=== PATIENT | female | born 1975 | race African-American/Black ===

== ENCOUNTER 2016-05-11 18:21 | Emergency (ER) | payer MEDICAID ==
[2015-03-01 02:22] VITALS: BMI 26.2
[~2016-05-11 18:21] MED LIST: BACTRIM DS TABL1 TAB PO; DEMEROL50 MG PO
[2016-05-11 19:23] LABS: APPEARANCE HAZY (CLEAR); BILIRUBIN NEGATIVE (NEGATIVE); COLOR YELLOW (YELLOW); GLUCOSE NEGATIVE (NEGATIVE); KETONE NEGATIVE (NEGATIVE); LEUKOCYTE ESTERASE NEGATIVE (NEGATIVE); NITRITE NEGATIVE (NEGATIVE); PROTEIN NEGATIVE (NEGATIVE); SPECIFIC GRAVITY 1.015 (1.005-1.020); UROBILINOGEN NORMAL (NORMAL)
[2016-05-11 19:24] LABS: BACTERIA FEW /hpf (NONE SEEN); RED CELLS - URINE 0-5 /hpf (0-5); WHITE CELLS - URINE 0-5 /hpf (0-5)
[2016-05-11 19:36] LABS: BASOPHILS 0.2 % (0.0-2.0); EOSINOPHILS 1.6 % (0-7); HEMATOCRIT 40.9 % (36.0-48.0); HEMOGLOBIN 13.1 g/dL (12-16); IMMATURE GRANULOCYTES 0.2 % (0-5); LYMPHOCYTES 28.2 % (15-50); MCV 90.5 fL (80.0-100.0); MEAN PLATELET VOLUME 10.8 fL (7.4-10.4); MONOCYTES 5.6 % (2-11); NEUTROPHILS 64.2 % (40-80); PLATELET COUNT 142 10x3/uL (130-400); RBC 4.52 10x6/uL (4.00-5.40); RDW 13.6 % (11.5-14.5); WBC 8.2 10x3/uL (4.8-10.8)
[2016-05-11 19:44] LABS: HCG SERUM NEGATIVE (NEGATIVE)
== END 2016-05-11 20:43 | disposition home or self-care (01) ==
LOC: D.ER 18:21
PROVIDERS: Emergency Medicine Emergency Medical Services
DX: N76.0 Acute vaginitis (principal); F17.200 Nicotine dependence, unspecified, uncomplicated

== ENCOUNTER → 2017-02-12 08:56 | Outpatient (CLI) | payer MEDICAID ==
[2015-03-01 02:22] VITALS: BMI 26.2
== END | disposition home or self-care (01) ==
LOC: D.US 08:56
DX: R11.0 Nausea (principal)

== ENCOUNTER → 2017-02-14 12:32 | Outpatient (CLI) | payer MEDICAID ==
[2015-03-01 02:22] VITALS: BMI 26.2
== END | disposition home or self-care (01) ==
LOC: D.NM 12:32
DX: R93.5 Abnormal findings on diagnostic imaging of other abdominal regions, including retroperitoneum (principal)

== ENCOUNTER 2017-05-13 14:01 | Emergency (ER) | payer MEDICAID ==
[2015-03-01 02:22] VITALS: BMI 26.2
== END 2017-05-13 17:05 | disposition home or self-care (01) ==
LOC: D.ER 14:01
DX: J11.1 Influenza due to unidentified influenza virus with other respiratory manifestations (principal)

== ENCOUNTER → 2017-09-21 08:07 | Outpatient (CLI) | payer MEDICAID ==
[2015-03-01 02:22] VITALS: BMI 26.2
== END | disposition home or self-care (01) ==
LOC: D.MRI 08:07
DX: Z12.31 Encounter for screening mammogram for malignant neoplasm of breast (principal)

== ENCOUNTER 2018-04-19 09:22 | Emergency (ER) | payer MEDICAID ==
[~2018-04-19] VITALS: Ht 170.2 cm; Wt 65.3 kg
[2018-04-19 09:36] VITALS: Ht 170.2 cm; Wt 65.3 kg
[2018-04-19] MEDS ORDERED: KEFLEX500 MG PO (10:54)
[2018-04-19] MEDS ORDERED: TORADOL10 MG PO (10:54)
[2018-04-19 11:30] VITALS: BP 116/74
== END 2018-04-19 11:30 | disposition home or self-care (01) ==
LOC: D.ER 09:22
DX: N75.0 Cyst of Bartholin's gland (principal); F17.200 Nicotine dependence, unspecified, uncomplicated

== ENCOUNTER 2018-11-27 09:00 | Outpatient (CLI) | payer MEDICAID ==
[2018-04-19 09:36] VITALS: BMI 26.2
[~2018-11-27 09:00] MED LIST changes: +KEFLEX500 MG PO; +TORADOL10 MG PO
== END 2018-11-27 10:00 | disposition home or self-care (01) ==
LOC: D.MAMMO 09:00
PROVIDERS: ATTEND Nurse Practitioner Women's Health
DX: Z12.31 Encounter for screening mammogram for malignant neoplasm of breast (principal)

== ENCOUNTER → 2019-02-19 08:00 | Outpatient (CLI) | payer MEDICAID ==
[2018-04-19 09:36] VITALS: BMI 26.2
== END ==
LOC: D.MAMMO 01-08 15:00
PROVIDERS: ATTEND Nurse Practitioner Women's Health
DX: R92.8 Other abnormal and inconclusive findings on diagnostic imaging of breast (principal)

== ENCOUNTER 2019-09-11 10:04 | Day surgery (SDC) | payer MEDICAID ==
[~2019-09-11] VITALS: Ht 166.4 cm; Wt 62.1 kg
[2019-09-11 10:42] VITALS: BP 119/81; Ht 166.4 cm; Wt 62.1 kg
[2019-09-11 10:53] LABS: HCG URINE NEGATIVE (NEGATIVE)
--- NOTE | 2019-09-11 10:56 | NUR ---
SUICIDE SCREEENING SCREENED POSITIVE IN THE PAST SUICIDE POLICY IMPLEMENTED NOTIFIED BRASS BOBBIN WINDER FOR BEHAVIAL HEALTH CONSULT.
[2019-09-11 11:22] LABS: BASOPHILS 0.1 % (0-2); EOSINOPHILS 0.2 % (0-7); HEMATOCRIT 44.1 % (36.0-48.0); HEMOGLOBIN 14.1 g/dL (12-16); IMMATURE GRANULOCYTES 0.3 % (0-5); MCH 29.3 pg (26.0-34.0); MCV 91.7 fL (80.0-100.0); MEAN PLATELET VOLUME 10.3 fL (7.4-10.4); MONOCYTES 5.8 % (2-11); NEUTROPHILS 85.6 % (40-80); PLATELET COUNT 167 10x3/uL (130-400); RBC 4.81 10x6/uL (4.00-5.40); WBC 11.1 10x3/uL (4.8-10.8)
--- NOTE | 2019-09-11 15:22 | NUR ---
FULL LIQUID TRAY TO ROOM. AWAKE AND ALERT.VSS. PAIN 5/10 TO INCISION SITE. CL IN EASY REACH
--- NOTE | 2019-09-11 16:48 | NUR ---
1545-REMOVED IV WITH CATH INTACT,DISPOSED INTO SHARPS,COVERED WITH GUAZE,SECURED WITH MEDIPORE TAPE.
--- NOTE | 2019-09-11 16:48 | NUR ---
1527-CONTACTED DR. PAINTER VIA PHONE FOR TAKE HOME PRESCRIPTIONS FOR PT. HE WILL SEND SOMEONE OVER FROM HIS OFFICE WITH [facility]
--- NOTE | 2019-09-11 16:49 | NUR ---
1602-DISCHARGE CRITERIA MET. REVIEWED POST OPERATIVE INSTRUCTIONS. VERBALIZED UNDERSTANDING. ESCORTED OUT VIA W/C WITH AWAITING TO DRIVE HOME
--- NOTE | 2019-09-11 23:10 | OP ---
PATIENT NAME: DAHLIA JEAN MEDICAL RECORD: [id number] :77 LOCATION:[facility] ADMISSION DATE: SURGEON: CABRERA PAINTER MD DATE OF OPERATION: 09/11/2019 PREOPERATIVE DIAGNOSIS: Symptomatic Bartholin cyst. POSTOPERATIVE DIAGNOSIS: Symptomatic Bartholin cyst. PROCEDURE: Marsupialization. SURGEON: Cabrera Painter MD LABOR EXPEDITER: Syed. ANESTHESIOLOGIST: Mackenzie. ANESTHETIC: LMA. FINDINGS: Approximately 5 cm Bartholin cyst with purulent material. The skin shows no signs of erythema. There is an area of induration along the lateral margin of the labia majora. SPECIMENS REMOVED: Cultures times 2. SPECIMEN DISPOSITION: Lab. ESTIMATED BLOOD LOSS: Minimal. FLUIDS: 200 cc lactated Ringer's. URINE OUTPUT: Quantity sufficient void prior to this procedure. COMPLICATIONS: None. DRAINS: None. INDICATIONS: The patient is a 44-year-old female with a history of incision and drainage and jacobo catheter placement times 4 on a left Bartholin cyst. Today, she presents to the clinic in extreme pain. The patient is examined and found to have a large left Bartholin cyst that is exquisitely tender without evidence of cellulitis. The patient is consented for marsupialization and taken to the OR. DESCRIPTION OF PROCEDURE: After informed consent was assured, the patient was taken to the operating room where anesthesia was obtained. The patient was placed in candy cane stirrups and prepped and draped. The vaginal opening and cyst is examined with the above finding. Four ligatures of 3-0 Vicryl of an RB-2 was placed at the 12, 6, 3 and 9 o'clock positions of where the elliptical incision will be under the marsupialization. One and a half incision was now made and the purulent material expressed from the Bartholin cyst. Loculations were broken up with a hemostat. After this cyst has been drained as completely as possible, a portion of the skin overlying the Bartholin cyst contained with inside the 4 ligatures that had been placed was excised using Metzenbaum scissors. The cyst wall is now stitched to the mucosa of the vagina with a OPERATIVE REPORT [id number] DAHLIA JEAN running stitch of 3-0 Vicryl. At the completion of this procedure, sponge, lap, and needle counts correct times 2. The patient was awakened and went to the recovery area in stable condition. TRANSINT:[id number] Voice Confirmation ID: [id number] DOCUMENT ID: [id number] CABRERA PAINTER MD at 2310 CC: [id number] DICTATION DATE: 09/11/19 1431 DOT COMPLIANCE COORDINATOR: 09/11/19 1642 [facility] [place] 09/11/19 [place] [id number] [place] [id number]
== END 2019-09-11 16:02 | disposition home or self-care (01) ==
LOC: D.OPS 10:04
PROVIDERS: ATTEND Obstetrics & Gynecology
DX: N75.0 Cyst of Bartholin's gland (principal)

== ENCOUNTER 2019-12-15 13:00 | Outpatient (CLI) | payer MEDICAID ==
[2019-09-11 10:42] VITALS: BMI 22.5
== END 2019-12-15 14:00 | disposition home or self-care (01) ==
LOC: D.MAMMO 13:00
PROVIDERS: ATTEND Emergency Medicine
DX: Z12.31 Encounter for screening mammogram for malignant neoplasm of breast (principal)

== ENCOUNTER 2020-08-27 07:40 | Day surgery (SDC) | payer MEDICAID ==
[~2020-08-27] VITALS: Ht 165.1 cm; Wt 62.6 kg
[2020-08-27 08:07] LABS: HEMATOCRIT 37.7 % (36.0-48.0); HEMOGLOBIN 12.3 g/dL (12-16); MCH 29.7 pg (26.0-34.0); MCHC 32.6 g/dL (31.0-37.0); MCV 91.1 fL (80.0-100.0); MEAN PLATELET VOLUME 10.2 fL (7.4-10.4); RBC 4.14 10x6/uL (4.00-5.40); RDW 13.3 % (11.5-14.5); WBC 5.3 10x3/uL (4.8-10.8)
[2020-08-27 08:21] LABS: HCG SERUM NEGATIVE (NEGATIVE)
[2020-08-27 09:08] VITALS: BP 126/89; Ht 165.1 cm; Wt 62.6 kg
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
--- NOTE | 2020-08-27 13:38 | NUR ---
1300 IV REMOVED AND PRESSURE HELD. INSTRUCTIONS GIVEN AND ASSISTED WITH GETTING DRESSED
--- NOTE | 2020-08-27 13:41 | NUR ---
1230 INDEX FINGER AND MIDDLE FINGER NUMB ABLE TO WIGGLE FINGERS TO OPERATIVE HAND. SLING IN PLACE AND DENIES PAIN.
== END 2020-08-27 13:30 | disposition home or self-care (01) ==
LOC: D.OPS 07:40
PROVIDERS: Anesthesiology; ATTEND Orthopaedic Surgery
DX: S66.012D Strain of long flexor muscle, fascia and tendon of left thumb at wrist and hand level, subsequent encounter (principal)

== ENCOUNTER → 2020-09-15 11:23 | Outpatient (CLI) | payer MEDICAID ==
[2020-08-27 09:08] VITALS: BMI 23.0
== END | disposition home or self-care (01) ==
LOC: D.US 11:00
PROVIDERS: ATTEND Surgery
DX: Z01.818 Encounter for other preprocedural examination (principal)